=== PATIENT | female | born 1975 | race Caucasian/White ===

== ENCOUNTER 2024-08-16 14:24 | Emergency (ER) | payer MEDICAID ==
[~2024-08-16] VITALS: Ht 170.2 cm; Wt 78.0 kg
[2024-08-16 14:45] VITALS: O2SAT 95
[2024-08-16 16:36] LABS: COLOR URINE YELLOW (YELLOW)
[2024-08-16 16:37] LABS: CLARITY URINE CLOUDY (CLEAR); GLUCOSE URINE NEGATIVE (NEGATIVE); KETONES URINE NEGATIVE (NEGATIVE); NITRITE URINE POSITIVE (NEGATIVE); OCCULT BLOOD URINE 1+ (NEGATIVE); PH URINE 6.5 (4.5-8.0); PROTEIN URINE 1+ (NEGATIVE)
[2024-08-16 16:38] LABS: LEUKOCYTE ESTERASE URINE 2+ (NEGATIVE)
[2024-08-16] MEDS: KETOROLAC 30MG/ML VIAL IM ONE (16:39)
[2024-08-16] MEDS: ACETAMINOPHEN 325MG TABLET PO ONE (16:40)
[2024-08-16 17:14] LABS: BACTERIA URINE 3+; SQUAMOUS EPITHELIAL CELL URINE 2+ /lpf (RARE/1+); WBC URINE 50-100 /hpf (0-2)
[2024-08-16] MEDS ORDERED: CEFP200T13 MT (17:16)
[2024-08-16] MEDS ORDERED: TRAM100C3 MT (17:20)
[2024-08-16 18:04] VITALS: BP 88/49; PULSE 76; RESP 18; TEMP 37.6; O2SAT 100
== END 2024-08-16 18:26 | disposition home or self-care (01) ==
LOC: ER 14:24
DX: N12 Tubulo-interstitial nephritis, not specified as acute or chronic (principal); Z98.890 Other specified postprocedural states; Z79.899 Other long term (current) drug therapy
CPT/HCPCS: 99283; 81003; 81025; 87086; 87186; 87077; 96372; J1885

== ENCOUNTER 2025-02-09 12:12 | Emergency (ER) | payer BC, MEDICAID ==
[~2025-02-09] VITALS: Ht 165.1 cm; Wt 58.0 kg
[~2025-02-09 12:12] MED LIST: CEFP200T13 MT; TRAM100C3 MT
[2025-02-09 12:29] VITALS: BP 128/44; TEMP 37.2; O2SAT 97
[2025-02-09 12:32] VITALS: PULSE 63; RESP 15; O2SAT 98
[2025-02-09 16:09] LABS: BASOPHILS % 0.6 % (0.0-2.0); EOSINOPHILS % 3.1 % (0.0-5.0); HEMATOCRIT. 41.2 % (36.0-48.0); HEMOGLOBIN. 13.9 g/dL (12.0-16.0); LYMPHOCYTES % 26.1 % (20.0-50.0); MEAN PLATELET VOLUME 10.6 fl (7.4-10.4); MONOCYTES % 5.7 % (2.0-8.0); NEUTROPHILS % 64.5 % (40.0-76.0); PLATELET 208 x1000/uL (130-400); RED BLOOD CELL COUNT 4.73 mill/uL (4.2-5.4); RED CELL DISTRIBUTION WIDTH 13.7 % (11.6-14.6)
[2025-02-09 16:22] LABS: CREATININE 0.8 mg/dL (0.6-1.0); INR 1.0; UREA NITROGEN BLOOD 9 mg/dL (9-23)
== END 2025-02-09 19:03 | disposition home or self-care (01) ==
LOC: ER 12:12
DX: S80.11XA Contusion of right lower leg, initial encounter (principal); Z79.899 Other long term (current) drug therapy; Z98.890 Other specified postprocedural states; X58.XXXA Exposure to other specified factors, initial encounter; Y93.89 Activity, other specified; Y92.89 Other specified places as the place of occurrence of the external cause; Y99.8 Other external cause status
CPT/HCPCS: 36415; 80048; 85025; 93971; 99284